=== PATIENT | male | born 1975 | race Caucasian/White ===

== ENCOUNTER 2018-12-31 02:23 | Inpatient (IN) | payer MEDICAID, OTHER ==
[~2018-12-31] VITALS: Ht 180.3 cm; Wt 63.0 kg
[~2018-12-31 02:23] MED LIST: CIPR500T4 PO; HYDR-3980 PO; METR-122 PO; ONDA8TAB14 PO
[2018-12-31] MEDS ORDERED: HYDROmorphONE 1 MG/ML SYG IV STA ×2 (03:39→06:32)
[2018-12-31] MEDS ORDERED: SOD CHLORIDE 0.9% 1,000 ML IV STA (03:39)
[2018-12-31] MEDS ORDERED: ONDANSETRON 4 MG INJ IV STA ×2 (03:39→06:32)
--- NOTE | 2018-12-31 05:43 | ERD ---
ER Documentation Chief Complaint Chief Complaint abd pain with n/v x2hrs ago; denies drinking HPI This a 43-year-old male who complains of diffuse abdominal pain with nausea vomiting onset 2 hours prior to arrival. Bilious and nonbloody. He has no diarrhea. He says the pain is diffuse and crampy no back pain. No hematuria or dysuria. Says the pain is all over his abdominal region. No prior history of the same symptoms in the past pain is crampy and sharp. He does complain of suprapubic pain with urination ROS All systems reviewed and are negative except as per history of present illness. Medications Home Meds Active Scripts Ciprofloxacin Hcl* (Ciprofloxacin Hcl*) 500 Mg Tablet, 500 MG PO BID for 7 Days, TAB Prov:BRITTANYOSROSSSTOLOS A. DO 12/31/18 Hydrocodone/Acetaminophen ([place] 10-325 Tablet) 1 Each Tablet, 1 TAB PO Q6H PRN for PAIN, #12 TAB Prov:ROSS SIMSSTEVANSS A. DO 12/31/18 Ondansetron (Ondansetron Odt) 8 Mg Tab.rapdis, 8 MG PO Q6H PRN for NAUSEA AND/OR VOMITING, #10 TAB Prov:LEKKOS,APOSTOLOS A. DO 12/31/18 Allergies Allergies: Coded Allergies: No Known Allergy (Unverified , 12/31/18) PMhx/Soc Medical and Surgical Hx: pt denies Medical Hx, pt denies Surgical Hx History of Surgery: No Anesthesia Reaction: No Hx Neurological Disorder: No Hx Respiratory Disorders: No Hx Cardiac Disorders: No Hx Psychiatric Problems: No Hx Miscellaneous Medical Probl: No Hx Alcohol Use: No Hx Substance Use: No Hx Tobacco Use: No Smoking Status: Never smoker FmHx Family History: No coronary disease Physical Exam Vitals Vital Signs Date Temp Pulse Resp B/P (MAP) Pulse Ox O2 O2 Flow FiO2 Time Delivery Rate 12/31/18 98.3 60 20 159/90 99 Room Air 05:03 (113) 12/31/18 66 20 146/110 100 Room Air 03:15 (122) 12/31/18 96.7 58 19 157/83 100 02:26 (107) Physical Exam Const: Well-developed, well-nourished Head: Atraumatic, normocephalic Eyes: Normal Conjunctiva, PERRLA, EOMI, normal sclera, no nystagmus ENT: Normal External Ears, Nose and Mouth, moist mucus membranes. Neck: Full range of motion. No meningismus, no lymphadenopathy. Resp: Clear to auscultation bilaterally, no wheezing, rhonchi, rales Cardio: Regular rate and rhythm, no murmurs, S1 S2 present Abd: Soft, diffuse abdominal tenderness moderate non distended. Normal bowel sounds, no guarding or rebound, no pulsitile abdominal masses or bruits Skin: No petechiae or rashes, no ecchymosis , no maculopapular rash Back: No midline or flank tenderness Ext: No cyanosis, or edema, FROM x 4, normal inspection, neurovascularly intact x 4 Neur: Awake and alert, STR 5/5 x 4, sensation intact x 4, no focal findings, cerebellum intact Psych: Normal Mood and Affect Const: No acute distress Head: Atraumatic Eyes: Normal Conjunctiva ENT: Normal External Ears, Nose and Mouth. Neck: Full range of motion. No meningismus. Resp: Clear to auscultation bilaterally Cardio: Regular rate and rhythm, no murmurs Abd: Soft, non tender, non distended. Normal bowel sounds Skin: No petechiae or rashes Back: No midline or flank tenderness Ext: No cyanosis, or edema Neur: Awake and alert Psych: Normal Mood and Affect Result Diagram: 12/31/18 0309 12/31/18 0309 Results 24 hrs Laboratory Tests Test 12/31/18 03:09 12/31/18 04:04 White Blood Count 14.9 10^3/ul Red Blood Count 4.55 10^6/ul Hemoglobin 14.3 g/dl Hematocrit 43.3 % Mean Corpuscular Volume 95.2 fl Mean Corpuscular Hemoglobin 31.4 pg Mean Corpuscular Hemoglobin Concent 33.0 g/dl Red Cell Distribution Width 12.5 % Platelet Count 347 10^3/UL Mean Platelet Volume 9.6 fl Immature Granulocytes % 0.500 % Neutrophils % 90.0 % Lymphocytes % 4.5 % Monocytes % 4.6 % Eosinophils % 0.1 % Basophils % 0.3 % Nucleated Red Blood Cells % 0.0 /100WBC Immature Granulocytes # 0.070 10^3/ul Neutrophils # 13.4 10^3/ul Lymphocytes # 0.7 10^3/ul Monocytes # 0.7 10^3/ul Eosinophils # 0.0 10^3/ul Basophils # 0.0 10^3/ul Nucleated Red Blood Cells # 0.0 10^3/ul Sodium Level 140 mmol/L Potassium Level 4.1 mmol/L Chloride Level 102 mmol/L Carbon Dioxide Level 31 mmol/L Anion Gap 7 Blood Urea Nitrogen 7 mg/dl Creatinine 0.79 mg/dl Est Glomerular Filtrat Rate mL/min > 60 mL/min Glucose Level 142 mg/dl Calcium Level 9.4 mg/dl Total Bilirubin 0.6 mg/dl Direct Bilirubin 0.00 mg/dl Indirect Bilirubin 0.6 mg/dl Aspartate Amino Transf (AST/SGOT) 28 IU/L Alanine Aminotransferase (ALT/SGPT) 27 IU/L Alkaline Phosphatase 100 IU/L Total Protein Pending Albumin 4.3 g/dl Globulin Pending Albumin/Globulin Ratio 1.22 Lipase 33 U/L Urine Color YELLOW Urine Clarity CLOUDY Urine pH 8.0 Urine Specific [place] 1.015 Urine Ketones 1+ mg/dL Urine Nitrite NEGATIVE mg/dL Urine Bilirubin NEGATIVE mg/dL Urine Urobilinogen NEGATIVE mg/dL Urine Leukocyte Esterase TRACE Corry/ul Urine Microscopic RBC 4 /HPF Urine Microscopic WBC 34 /HPF Urine Amorphous Crystals FEW /HPF Urine Hemoglobin NEGATIVE mg/dL Urine Glucose NEGATIVE mg/dL Urine Total Protein NEGATIVE mg/dl Current Medications Medications Dose Sig/Semaj Start Time Status Last (Trade) Ordered Route PRN Stop Time Admin Dose Reason Admin Sodium 1,000 ml @ Q1H STAT 12/31/18 DC 12/31/18 Chloride 1,000 mls/hr IV 03:39 12/31/18 04:03 04:38 1 mg ONCE STAT 12/31/18 DC 12/31/18 Hydromorphone IV 03:39 12/31/18 04:04 HCl 03:41 (Dilaudid) Ondansetron 4 mg ONCE STAT 12/31/18 DC 12/31/18 HCl (Zofran IV 03:39 12/31/18 04:04 Inj) 03:41 Procedures/MDM . CT of the abdomen and pelvis was done and the radiologist called me telling me that the patient's appendix is at 1.6 cm in diameter but there is no infla mmation. There is a mucocele/appendicocele and there is also a base of the cecum mass that is suspicious for a neoplasm. There is also a 6 mm liver mass that looks like a metastasis. 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 We will admit to panel and consult general surgery dr sotelo Departure Diagnosis: Primary Impression: Cecum mass Additional Impressions: Abdominal pain Abdominal location: generalized Qualified Codes: R10.84 - Generalized abdominal pain Vomiting Vomiting type: unspecified Vomiting Intractability: unspecified Nausea presence: unspecified Qualified Codes: R11.10 - Vomiting, unspecified Liver lesion Condition: Stable BRE SIMS DO Dec 31, 2018 05:43
[2018-12-31] MEDS ORDERED: IOHEXOL 300MG/ML 150 ML BTL ONE (06:18)
[2018-12-31] MEDS ORDERED: SOD CHLORIDE 0.9% 100 ML ONE (06:18)
[2018-12-31] MEDS ORDERED: SOD CHLORIDE 0.9% 1,000 ML IV SCH (06:26)
[2018-12-31] MEDS ORDERED: ACETAMINOPHEN 325 MG TAB PO PRN (06:30)
[2018-12-31] MEDS ORDERED: ONDANSETRON 4 MG INJ IV PRN (06:30)
[2018-12-31 08:00] VITALS: BP 133/83; PULSE 80; RESP 17
[2018-12-31] MEDS ORDERED: CEFTRIAXONE 1 GM/50 ML (PMX) 50 ML IVPB SCH (08:00)
[2018-12-31] MEDS ORDERED: NACL 0.9% 3 ML SYG IV SCH (08:00)
[2018-12-31 08:01] VITALS: Ht 180.3 cm; Wt 63.0 kg
[2018-12-31] MEDS: DEXTROSE 5%-0.45% NACL 1,000 ML IV SCH ×3 (08:13→23:58)
--- NOTE | 2018-12-31 08:49 | HP ---
Date/Time of Note Date/Time of Note DATE: 12/31/18 TIME: 08:42 Assessment/Plan VTE Prophylaxis SCD applied (from Nsg): Yes Pharmacological prophylaxis: NA/contraindicated Pharm contraindication: other (Awaiting surgical eval) Lines/Catheters IV Catheter Type (from Nrsg): Saline Lock Assessment/Plan Assessment/Plan 1. Presumed acute appendicitis -Keep n.p.o. with IV fluid -IV antibiotic -Awaiting surgical evaluation, Derik Henry 2. Colon thickening with ill-defined liver lesion: Worrisome for metastatic process -GI for colonoscopy -Check tumor markers -Oncology consult in a.m. 3. UTI -IV antibiotic -IV fluid -follow-up culture results 4. Leukocytosis: Likely secondary to #1 #3 5. History of a spontaneous right-sided pneumothorax requiring chest tube insertion: -No acute issue Result Diagram: 12/31/18 0309 12/31/18 0309 Results 24hrs Laboratory Tests Test 12/31/18 03:09 12/31/18 04:04 White Blood Count 14.9 H Red Blood Count 4.55 L Hemoglobin 14.3 Hematocrit 43.3 Mean Corpuscular Volume 95.2 Mean Corpuscular Hemoglobin 31.4 Mean Corpuscular Hemoglobin Concent 33.0 Red Cell Distribution Width 12.5 Platelet Count 347 Mean Platelet Volume 9.6 Immature Granulocytes % 0.500 H Neutrophils % 90.0 H Lymphocytes % 4.5 L Monocytes % 4.6 Eosinophils % 0.1 Basophils % 0.3 Nucleated Red Blood Cells % 0.0 Immature Granulocytes # 0.070 H Neutrophils # 13.4 H Lymphocytes # 0.7 L Monocytes # 0.7 Eosinophils # 0.0 Basophils # 0.0 Nucleated Red Blood Cells # 0.0 Sodium Level 140 Potassium Level 4.1 Chloride Level 102 Carbon Dioxide Level 31 Anion Gap 7 Blood Urea Nitrogen 7 Creatinine 0.79 Est Glomerular Filtrat Rate mL/min > 60 Glucose Level 142 Calcium Level 9.4 Total Bilirubin 0.6 Direct Bilirubin 0.00 Indirect Bilirubin 0.6 Aspartate Amino Transf (AST/SGOT) 28 Alanine Aminotransferase (ALT/SGPT) 27 Alkaline Phosphatase 100 Total Protein 7.7 Albumin 4.3 Globulin 3.40 H Albumin/Globulin Ratio 1.22 Lipase 33 Urine Color YELLOW Urine Clarity CLOUDY A Urine pH 8.0 Urine Specific [place] 1.015 Urine Ketones 1+ H Urine Nitrite NEGATIVE Urine Bilirubin NEGATIVE Urine Urobilinogen NEGATIVE Urine Leukocyte Esterase TRACE A Urine Microscopic RBC 4 Urine Microscopic WBC 34 H Urine Amorphous Crystals FEW A Urine Hemoglobin NEGATIVE Urine Glucose NEGATIVE Urine Total Protein NEGATIVE HPI/ROS Admit Date/Time Admit Date/Time Dec 31, 2018 at 06:26 Hx of Present Illness Patient is a 43-year-old male with history of spontaneous pneumothorax requiring chest tube insertion who presented to ER complaining of abdominal pain. Pain started yesterday. It is diffuse, associated with one episode of vomiting with emesis described as dark and nonbloody. Patient also reported generalized wea kness. Denied similar symptoms in the past. Denies constipation, diarrhea. Last bowel movement was yesterday, which he described as normal, not dark and is nonbloody. He is thinly build and stated that he has always been like this. Denied weight loss. When he was younger, used to smoke marijuana, otherwise denies illicit drug use, alcohol abuse. He does not smoke cigarettes however. When presented to the ER, initial temperature documented was 96.7. WBC 15,000, UA consistent with UTI. CT abdomen/pelvis shows the followin. Dilated fluid filled appendix measuring up to 1.6 cm diameter, appearance consistent with appendicitis with mucocele. 2. Mildly thickened heterogeneous appearance of the bowel wall at the cecal base raises concern for underlying neoplasm. 3. Ill-defined 6.2 cm low attenuation lesion within the right lobe of the liver, differential includes metastatic disease, primary neoplasm and infection. Consider further evaluation with MRI. PMH/Family/Social Past Medical History Medical History: other (See HPI) Medications Current Medications Sodium Chloride 1,000 ml @ 80 mls/hr [id number] IV Last administered on 12/31/18at 07:29; Admin Dose 80 MLS/HR; Start 12/31/18 at 06:26; Stop 12/31/18 at 18:55 Ondansetron HCl (Zofran Inj) 4 mg BRIDGE ORDER PRN IV NAUSEA/VOMITING; Start at 06:30; Stop 01/01/19 at 06:29 Acetaminophen (Tylenol Tab) 650 mg ER BRIDGE PRN PO .MILD PAIN 1-3 OR TEMP; Start 12/31/18 at 06:30; Stop 01/01/19 at 06:29 Dextrose/Sodium Chloride 1,000 ml @ 120 mls/hr Q8H20M IV Last administered on 12/31/18at 08:13; Admin Dose 120 MLS/HR; Start 12/31/18 at 07:46 IV Flush (NS 3 ml) 3 ml PER PROTOCOL IV ; Start 12/31/18 at 08:00 Ondansetron HCl (Zofran Inj) 4 mg Q6H PRN IV NAUSEA/VOMITING; Start 12/31/18 at 08:00 Morphine Sulfate (morphine) 2 mg Q4H PRN IV .SEVERE PAIN 7-10; Start 12/31/18 at 08:00 Pantoprazole (Protonix Iv) 40 mg DAILY@06 IV ; Start 01/01/19 at 06:00 Piperacillin Sod/ Tazobactam Sod 100 ml @ 200 mls/hr Q6 IVPB ; Start 12/31/18 at 12:00; Status UNV Coded Allergies: No Known Allergy (Unverified , 12/31/18) Past Surgical History Past Surgical Hx: other (See HPI) Family History Significant Family History: no pertinent family hx Social History Alcohol Use: none Smoking Status: Current every day smoker Drug Use: none Exam/Review of Systems Vital Signs Vitals Vital Signs Date Temp Pulse Resp B/P (MAP) Pulse Ox O2 O2 Flow FiO2 Time Delivery Rate 12/31/18 98.2 80 17 133/83 99 Room Air 08:00 (100) Exam Constitutional: other (Appears somehow weak. Sleepy, but arousable and answering questions appropriately) Head: normocephalic, atraumatic Eyes: EOMI, PERRL Respiratory: clear to auscultation, normal air movement Cardiovascular: regular rate and rhythm Gastrointestinal: soft, other (Minimal tenderness to deep palpation diffusely. No guarding. No rebound tenderness. No rigidity) Extremities: normal pulses CANDACE RAMOS MD Dec 31, 2018 08:49
[2018-12-31] MEDS: PIPER-TAZO 3.375 GM IV (PMX) 100 ML IVPB SCH ×4 (10:56→23:59)
[2018-12-31] MEDS: morphine 2 MG INJ IV PRN ×2 (11:53→18:44)
--- NOTE | 2018-12-31 14:17 | PN ---
Date/Time of Note Date/Time of Note DATE: 12/31/18 TIME: 14:13 Assessment/Plan VTE Prophylaxis Risk score (from Ns)>0 risk: 1 SCD applied (from Nsg): Yes Pharmacological prophylaxis: NA/contraindicated Pharm contraindication: low risk/ambulating Lines/Catheters IV C[facility] Type [facility]from [facility]): Peripheral IV Assessment/Plan Assessment/Plan 43 yo man with history of spontaneous pneumothorax presents with acute appendicitis. 1. Presumed acute appendicitis -Keep n.p.o. with IV fluid -IV antibiotic -Awaiting surgical evaluation, Derik Henry - The patient reports good cardiovascular fitness, hikes regularly, can easily achieve >4 METS without chest pain or dyspnea. He is medically optimized for surgery with no further medical or cardiac workup needed. 2. Colon thickening with ill-defined liver lesion: Worrisome for metastatic process -Will need to check surgical pathology. - If possible, a liver biopsy during appendectomy would be very helpful. 3. UTI -IV antibiotic -IV fluid -follow-up culture results 4. History of a spontaneous right-sided pneumothorax requiring chest tube insertion: -No acute issue Result Diagram: 12/31/18 0309 12/31/18 0309 Subjective 24 Hr Interval Summary Free Text/Dictation No acute overnight events. Patient is still in abdominal pain. Exam/Review of Systems Exam Vitals Vital Signs Date Temp Pulse Resp B/P (MAP) Pulse Ox O2 O2 Flow FiO2 Time Delivery Rate 12/31/18 98.2 80 17 133/83 99 Room Air 08:00 (100) Exam Gen: Well appearing, man supine in gurney in no acute distress. Eyes: PERRL, mild icterus HEENT: Moist mucous membranes, clear oropharynx Neck: Supple, no lymphadenopathy, no JVD Card: Regular rate and rhythm, no murmurs Pulm: Clear to auscultation bilaterally. Abd: Soft, nondistended, not tympanic. Hypoactive bowel sounds. Ext: No cyanosis/clubbing/edema. Skin: No jaundice. Warm, dry, well perfused. Results Results 24hrs Laboratory Tests Test 12/31/18 03:09 12/31/18 04:04 12/31/18 08:27 White Blood Count 14.9 H Red Blood Count 4.55 L Hemoglobin 14.3 Hematocrit 43.3 Mean Corpuscular Volume 95.2 Mean Corpuscular Hemoglobin 31.4 Mean Corpuscular Hemoglobin Concent 33.0 Red Cell Distribution Width 12.5 Platelet Count 347 Mean Platelet Volume 9.6 Immature Granulocytes % 0.500 H Neutrophils % 90.0 H Lymphocytes % 4.5 L Monocytes % 4.6 Eosinophils % 0.1 Basophils % 0.3 Nucleated Red Blood Cells % 0.0 Immature Granulocytes # 0.070 H Neutrophils # 13.4 H Lymphocytes # 0.7 L Monocytes # 0.7 Eosinophils # 0.0 Basophils # 0.0 Nucleated Red Blood Cells # 0.0 Sodium Level 140 Potassium Level 4.1 Chloride Level 102 Carbon Dioxide Level 31 Anion Gap 7 Blood Urea Nitrogen 7 Creatinine 0.79 Est Glomerular Filtrat Rate mL/min > 60 Glucose Level 142 Calcium Level 9.4 Total Bilirubin 0.6 Direct Bilirubin 0.00 Indirect Bilirubin 0.6 Aspartate Amino Transf (AST/SGOT) 28 Alanine Aminotransferase (ALT/SGPT) 27 Alkaline Phosphatase 100 Total Protein 7.7 Albumin 4.3 Globulin 3.40 H Albumin/Globulin Ratio 1.22 Lipase 33 Urine Color YELLOW Urine Clarity CLOUDY A Urine pH 8.0 Urine Specific [place] 1.015 Urine Ketones 1+ H Urine Nitrite NEGATIVE Urine Bilirubin NEGATIVE Urine Urobilinogen NEGATIVE Urine Leukocyte Esterase TRACE A Urine Microscopic RBC 4 Urine Microscopic WBC 34 H Urine Amorphous Crystals FEW A Urine Hemoglobin NEGATIVE Urine Glucose NEGATIVE Urine Total Protein NEGATIVE Carcinoembryonic Antigen 18.4 H CA 19-9 Antigen 325.0 H Medications Medication Current Medications Sodium Chloride 1,000 ml @ 80 mls/hr [id number] IV Last administered on 12/31/18at 07:29; Admin Dose 80 MLS/HR; Start 12/31/18 at 06:26; Stop 12/31/18 at 18:55 Dextrose/Sodium Chloride 1,000 ml @ 120 mls/hr Q8H20M IV Last administered on 12/31/18at 08:13; Admin Dose 120 MLS/HR; Start 12/31/18 at 07:46 IV Flush (NS 3 ml) 3 ml PER PROTOCOL IV ; Start 12/31/18 at 08:00 Ondansetron HCl (Zofran Inj) 4 mg Q6H PRN IV NAUSEA/VOMITING; Start 12/31/18 at 08:00 Morphine Sulfate (morphine) 2 mg Q4H PRN IV .SEVERE PAIN 7-10 Last administered on 12/31/18at 11:53; Admin Dose 2 MG; Start 12/31/18 at 08:00 Pantoprazole (Protonix Iv) 40 mg DAILY@06 IV ; Start 01/01/19 at 06:00 Piperacillin Sod/ Tazobactam Sod 100 ml @ 200 mls/hr Q6 IVPB Last administered on 12/31/18at 10:56; Admin Dose 200 MLS/HR; Start 12/31/18 at 09:00 ALLISON FIGUEROA MD Dec 31, 2018 14:17
[2018-12-31 15:02] VITALS: BP 125/68; PULSE 63; RESP 18
--- NOTE | 2018-12-31 16:52 | CONS ---
Assessment/Plan Assessment/Plan Assessment/Plan (Daily) Patient presents with a clinical picture of the cecal mass with the liver lesion and dilated appendix. 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 His dilated appendix probably secondary to occlusion of the lumen by the cecal mass. Currently patient is stable with minimal pain. The best course of treatment in this way will be full colonoscopy with a biopsy, MRI of the liver, blood tests for the tumor markers, hepatobiliary consult for possible hepatectomy. Patient cannot have appendectomy at that time unless is absolutely mandatory by clinical picture. If the patient will need urgent surgery he will need right hemicolectomy at least. Consultation Date/Type/Reason Admit Date/Time Dec 31, 2018 at 06:26 Date of Consultation: Dec 31, 2018 Type of Consult Surgical Reason for Consultation Cecal mass with liver lesion. Date/Time of Note DATE: 12/31/18 TIME: 16:49 Hx of Present Illness Patient is 43-year-old male who is been in usual state of his health when yesterday he developed nausea abdominal discomfort and fatigue and was referred to emergency room. In the emergency room he was found to have dilated appendix cecal mass and possible liver lesion. Constitutional: no complaints, improved Eyes: no complaints ENT: no complaints Respiratory: no complaints Cardiovascular: no complaints Gastrointestinal: no complaints Genitourinary: no complaints Musculoskeletal: no complaints Skin: no complaints Neurologic: no complaints Endocrine: no complaints Lymphatic: no complaints Psychological: no complaints, nl mood/affect Immunologic: no complaints Past Medical History Medical History: other (See HPI) Home Meds Active Scripts Ciprofloxacin Hcl* (Ciprofloxacin Hcl*) 500 Mg Tablet, 500 MG PO BID for 7 Days, TAB Prov:BRE SIMS DO 12/31/18 Hydrocodone/Acetaminophen ([place] 10-325 Tablet) 1 Each Tablet, 1 TAB PO Q6H PRN for PAIN, #12 TAB Prov:BRE SIMS DO 12/31/18 Ondansetron (Ondansetron Odt) 8 Mg Tab.rapdis, 8 MG PO Q6H PRN for NAUSEA AND/OR VOMITING, #10 TAB Prov:BRE SIMS DO 12/31/18 Medications Current Medications Sodium Chloride 1,000 ml @ 80 mls/hr [id number] IV Last administered on 12/31/18at 07:29; Admin Dose 80 MLS/HR; Start 12/31/18 at 06:26; Stop 12/31/18 at 18:55 Dextrose/Sodium Chloride 1,000 ml @ 120 mls/hr Q8H20M IV Last administered on 12/31/18at 08:13; Admin Dose 120 MLS/HR; Start 12/31/18 at 07:46 IV Flush (NS 3 ml) 3 ml PER PROTOCOL IV ; Start 12/31/18 at 08:00 Ondansetron HCl (Zofran Inj) 4 mg Q6H PRN IV NAUSEA/VOMITING; Start 12/31/18 at 08:00 Morphine Sulfate (morphine) 2 mg Q4H PRN IV .SEVERE PAIN 7-10 Last administered on 12/31/18at 11:53; Admin Dose 2 MG; Start 12/31/18 at 08:00 Pantoprazole (Protonix Iv) 40 mg DAILY@06 IV ; Start 01/01/19 at 06:00 Piperacillin Sod/ Tazobactam Sod 100 ml @ 200 mls/hr Q6 IVPB Last administered on 12/31/18at 10:56; Admin Dose 200 MLS/HR; Start 12/31/18 at 09:00 Allergies: Coded Allergies: No Known Allergy (Unverified , 12/31/18) Past Surgical History Past Surgical Hx: other (See HPI) Social History Alcohol Use: none Smoking Status: Current every day smoker Drug Use: none Exam/Review of Systems Exam Vitals Vital Signs Date Temp Pulse Resp B/P (MAP) Pulse Ox O2 O2 Flow FiO2 Time Delivery Rate 12/31/18 98.0 63 18 125/68 98 Room Air 15:02 (87) Constitutional: alert, oriented, well developed Psych: no complaints, nl mood/affect Head: normocephalic, atraumatic Eyes: nl conjunctiva, EOMI, nl lids, nl sclera, PERRL ENMT: nl external ears & nose, nl lips & teeth, nl nasal mucosa & septum Neck: supple, non-tender Respiratory: clear to auscultation, normal air movement Cardiovascular: regular rate and rhythm, nl pulses Gastrointestinal: soft, hepatomegaly, other (Very mild tenderness in the right lower quadrant without rebound.) Musculoskeletal: nl extremities to inspection, nl gait and stance Extremities: normal pulses Neurological: CAUSE ANALYST II-XII intact, nl mental status, nl speech, nl strength Skin: nl turgor; No rash or lesions Lymph: nl lymph nodes Results Result Diagram: 12/31/18 0309 12/31/18 0309 Results 24hrs Laboratory Tests Test 12/31/18 03:09 12/31/18 04:04 12/31/18 08:27 White Blood Count 14.9 H Red Blood Count 4.55 L Hemoglobin 14.3 Hematocrit 43.3 Mean Corpuscular Volume 95.2 Mean Corpuscular Hemoglobin 31.4 Mean Corpuscular Hemoglobin Concent 33.0 Red Cell Distribution Width 12.5 Platelet Count 347 Mean Platelet Volume 9.6 Immature Granulocytes % 0.500 H Neutrophils % 90.0 H Lymphocytes % 4.5 L Monocytes % 4.6 Eosinophils % 0.1 Basophils % 0.3 Nucleated Red Blood Cells % 0.0 Immature Granulocytes # 0.070 H Neutrophils # 13.4 H Lymphocytes # 0.7 L Monocytes # 0.7 Eosinophils # 0.0 Basophils # 0.0 Nucleated Red Blood Cells # 0.0 Sodium Level 140 Potassium Level 4.1 Chloride Level 102 Carbon Dioxide Level 31 Anion Gap 7 Blood Urea Nitrogen 7 Creatinine 0.79 Est Glomerular Filtrat Rate mL/min > 60 Glucose Level 142 Calcium Level 9.4 Total Bilirubin 0.6 Direct Bilirubin 0.00 Indirect Bilirubin 0.6 Aspartate Amino Transf (AST/SGOT) 28 Alanine Aminotransferase (ALT/SGPT) 27 Alkaline Phosphatase 100 Total Protein 7.7 Albumin 4.3 Globulin 3.40 H Albumin/Globulin Ratio 1.22 Lipase 33 Urine Color YELLOW Urine Clarity CLOUDY A Urine pH 8.0 Urine Specific [place] 1.015 Urine Ketones 1+ H Urine Nitrite NEGATIVE Urine Bilirubin NEGATIVE Urine Urobilinogen NEGATIVE Urine Leukocyte Esterase TRACE A Urine Microscopic RBC 4 Urine Microscopic WBC 34 H Urine Amorphous Crystals FEW A Urine Hemoglobin NEGATIVE Urine Glucose NEGATIVE Urine Total Protein NEGATIVE Carcinoembryonic Antigen 18.4 H CA 19-9 Antigen 325.0 H Medications Medication Current Medications Sodium Chloride 1,000 ml @ 80 mls/hr [id number] IV Last administered on 12/31/18at 07:29; Admin Dose 80 MLS/HR; Start 12/31/18 at 06:26; Stop 12/31/18 at 18:55 Dextrose/Sodium Chloride 1,000 ml @ 120 mls/hr Q8H20M IV Last administered on 12/31/18at 08:13; Admin Dose 120 MLS/HR; Start 12/31/18 at 07:46 IV Flush (NS 3 ml) 3 ml PER PROTOCOL IV ; Start 12/31/18 at 08:00 Ondansetron HCl (Zofran Inj) 4 mg Q6H PRN IV NAUSEA/VOMITING; Start 12/31/18 at 08:00 Morphine Sulfate (morphine) 2 mg Q4H PRN IV .SEVERE PAIN 7-10 Last administered on 12/31/18at 11:53; Admin Dose 2 MG; Start 12/31/18 at 08:00 Pantoprazole (Protonix Iv) 40 mg DAILY@06 IV ; Start 01/01/19 at 06:00 Piperacillin Sod/ Tazobactam Sod 100 ml @ 200 mls/hr Q6 IVPB Last administered on 12/31/18at 10:56; Admin Dose 200 MLS/HR; Start 12/31/18 at 09:00 FORTINO SHIPLEY MD Dec 31, 2018 16:52
[2018-12-31] MEDS ORDERED: MAGNESIUM CITRATE 300 ML BTL PO ONE (17:30)
--- NOTE | 2018-12-31 18:01 | CONS ---
Assessment/Plan Assessment/Plan Hospital Course (Demo Recall) Summary Assessment and Plan: Assessment: Dilated appendix with underlying cecal wall thickening concerning for neoplasm -CEA-- 18.4 -CA 19-9-- 325 Hepatic lesion Family history of colon ca i.e. father Current everyday smoker-1/2 pack per day Plan: Abdominal MRI with contrast to further characterize liver lesion Clear liquid diet today, n.p.o. after 01/01/2019 at 0 800 Colonoscopy tomorrow Endoscopy - risks/benefits/alternatives/indications of procedure and sedation/anesthesia discussed with patient who states understanding and gives informed consent to proceed. Patient seen in collaboration with Dr. Aguliar CC: ALVIN AGUILAR MD ; Consultation Date/Type/Reason Admit Date/Time Dec 31, 2018 at 06:26 Date of Consultation: Dec 31, 2018 Type of Consult Gastroenterology Reason for Consultation Abnormal imaging thickening of bowel wall cecal base concerns for underlying neoplasm Date/Time of Note DATE: 12/31/18 TIME: 17:47 Hx of Present Illness This is a 43 year old male with PMH thorax in his 20s other chicas relatively heal thy who presented to the ED with c/o nausea and lower abdominal pain. Imaging was completed CT A/P revealed dilated appendix, appearance consistent with appendicitis with mucocele. with mildly thickened bowel wall at the cecal base with concerns for underlying neoplasm. An ill-defined 6.2 cm lesion was noted with in the right lobe of the liver with concerns for metastatic disease. Additionally, tumor markers were obtained CEA- 18.4 and CA 199 325. Patient was evaluated by surgery who recommends full colonoscopy with biopsy and MRI of the liver. At time evaluation patient continues to complain of lower abdominal pain he denies hematochezia, melena. He denies alcohol use or drug use, he does admit to smoking 1/2 of cigarettes per day for 20+ years, and does have a family history fo colon cancer i.e. father. Discussed plan for colonoscopy tomorrow I reviewed risk/benefits of sedation and procedure including risk for perforation. Patient verbalized understanding and is agreeable to colonoscopy. Review of Systems: A 12 system, review was conducted and is negative except as noted in the HPI or here. Past Medical History Medical History: other (See HPI) Home Meds Active Scripts Ciprofloxacin Hcl* (Ciprofloxacin Hcl*) 500 Mg Tablet, 500 MG PO BID for 7 Days, TAB Prov:BRE SIMS DO 12/31/18 Hydrocodone/Acetaminophen ([place] 10-325 Tablet) 1 Each Tablet, 1 TAB PO Q6H PRN for PAIN, #12 TAB Prov:BRE SIMS DO 12/31/18 Ondansetron (Ondansetron Odt) 8 Mg Tab.rapdis, 8 MG PO Q6H PRN for NAUSEA AND/OR VOMITING, #10 TAB Prov:BRE SIMS DO 12/31/18 Medications Current Medications Sodium Chloride 1,000 ml @ 80 mls/hr [id number] IV Last administered on 12/31/18at 07:29; Admin Dose 80 MLS/HR; Start 12/31/18 at 06:26; Stop 12/31/18 at 18:55 Dextrose/Sodium Chloride 1,000 ml @ 120 mls/hr Q8H20M IV Last administered on 12/31/18at 08:13; Admin Dose 120 MLS/HR; Start 12/31/18 at 07:46 IV Flush (NS 3 ml) 3 ml PER PROTOCOL IV ; Start 12/31/18 at 08:00 Ondansetron HCl (Zofran Inj) 4 mg Q6H PRN IV NAUSEA/VOMITING; Start 12/31/18 at 08:00 Morphine Sulfate (morphine) 2 mg Q4H PRN IV .SEVERE PAIN 7-10 Last administered on 12/31/18at 11:53; Admin Dose 2 MG; Start 12/31/18 at 08:00 Pantoprazole (Protonix Iv) 40 mg DAILY@06 IV ; Start 01/01/19 at 06:00 Piperacillin Sod/ Tazobactam Sod 100 ml @ 200 mls/hr Q6 IVPB Last administered on 12/31/18at 17:14; Admin Dose 200 MLS/HR; Start 12/31/18 at 09:00 Allergies: Coded Allergies: No Known Allergy (Unverified , 12/31/18) Past Surgical History Past Surgical Hx: other (See HPI) Social History Alcohol Use: none Smoking Status: Current every day smoker Drug Use: none Exam/Review of Systems Exam Vitals Vital Signs Date Temp Pulse Resp B/P (MAP) Pulse Ox O2 O2 Flow FiO2 Time Delivery Rate 12/31/18 98.0 63 18 125/68 98 Room Air 15:02 (87) Exam PHYSICAL EXAMINATION: GENERAL: Alert & oriented x 3, in no acute distress SKIN: No lesion HEAD: Normocephalic, atraumatic, no tenderness. EYES: Pupils equal reactive to light and accommodation, no discharge. EARS/NOSE AND THROAT: Ears normal, nose normal. NECK: Supple, no masses CHEST: Inspection within normal limits. CARDIOVASCULAR: Heart: Regular rate and rhythm RESPIRATORY: Lungs clear to auscultation GASTROINTESTINAL AND LIVER: Abdomen: Soft, non tenderness, non-distended, no organomegaly, no ascites, no guarding, no rebound tenderness, normoactive bowel sounds. Rectal: Deferred. EXTREMITIES: No cyanosis, clubbing or edema. Results Result Diagram: 12/31/18 0309 12/31/18 0309 Results 24hrs Laboratory Tests Test 12/31/18 03:09 12/31/18 04:04 12/31/18 08:27 White Blood Count 14.9 H Red Blood Count 4.55 L Hemoglobin 14.3 Hematocrit 43.3 Mean Corpuscular Volume 95.2 Mean Corpuscular Hemoglobin 31.4 Mean Corpuscular Hemoglobin Concent 33.0 Red Cell Distribution Width 12.5 Platelet Count 347 Mean Platelet Volume 9.6 Immature Granulocytes % 0.500 H Neutrophils % 90.0 H Lymphocytes % 4.5 L Monocytes % 4.6 Eosinophils % 0.1 Basophils % 0.3 Nucleated Red Blood Cells % 0.0 Immature Granulocytes # 0.070 H Neutrophils # 13.4 H Lymphocytes # 0.7 L Monocytes # 0.7 Eosinophils # 0.0 Basophils # 0.0 Nucleated Red Blood Cells # 0.0 Sodium Level 140 Potassium Level 4.1 Chloride Level 102 Carbon Dioxide Level 31 Anion Gap 7 Blood Urea Nitrogen 7 Creatinine 0.79 Est Glomerular Filtrat Rate mL/min > 60 Glucose Level 142 Calcium Level 9.4 Total Bilirubin 0.6 Direct Bilirubin 0.00 Indirect Bilirubin 0.6 Aspartate Amino Transf (AST/SGOT) 28 Alanine Aminotransferase (ALT/SGPT) 27 Alkaline Phosphatase 100 Total Protein 7.7 Albumin 4.3 Globulin 3.40 H Albumin/Globulin Ratio 1.22 Lipase 33 Urine Color YELLOW Urine Clarity CLOUDY A Urine pH 8.0 Urine Specific Champion 1.015 Urine Ketones 1+ H Urine Nitrite NEGATIVE Urine Bilirubin NEGATIVE Urine Urobilinogen NEGATIVE Urine Leukocyte Esterase TRACE A Urine Microscopic RBC 4 Urine Microscopic WBC 34 H Urine Amorphous Crystals FEW A Urine Hemoglobin NEGATIVE Urine Glucose NEGATIVE Urine Total Protein NEGATIVE Carcinoembryonic Antigen 18.4 H CA 19-9 Antigen 325.0 H Medications Medication Current Medications Sodium Chloride 1,000 ml @ 80 mls/hr [id number] IV Last administered on 12/31/18 07:29; Admin Dose 80 MLS/HR; Start 12/31/18 at 06:26; Stop 12/31/18 at 18:55 Dextrose/Sodium Chloride 1,000 ml @ 120 mls/hr Q8H20M IV Last administered on 12/31/18at 08:13; Admin Dose 120 MLS/HR; Start 12/31/18 at 07:46 IV Flush (NS 3 ml) 3 ml PER PROTOCOL IV ; Start 12/31/18 at 08:00 Ondansetron HCl (Zofran Inj) 4 mg Q6H PRN IV NAUSEA/VOMITING; Start 12/31/18 at 08:00 Morphine Sulfate (morphine) 2 mg Q4H PRN IV .SEVERE PAIN 7-10 Last administered on 12/31/18at 11:53; Admin Dose 2 MG; Start 12/31/18 at 08:00 Pantoprazole (Protonix Iv) 40 mg DAILY@06 IV ; Start 01/01/19 at 06:00 Piperacillin Sod/ Tazobactam Sod 100 ml @ 200 mls/hr Q6 IVPB Last administered on 12/31/18at 17:14; Admin Dose 200 MLS/HR; Start 12/31/18 at 09:00 ESTHER LEONE Dec 31, 2018 17:59
[2018-12-31] MEDS ORDERED: BISACODYL (EC) 5 MG TAB PO ONE (18:30)
[2018-12-31] MEDS ORDERED: POLYETHYLENE GLYCOL 3350 119 GM POWDER PO ONE (18:30)
[2018-12-31 20:09] VITALS: BP 128/75; PULSE 76; RESP 18
[2018-12-31] MEDS ORDERED: POLYETHYLENE GLYCOL 17 GM PACKET PO SCH (22:00)
[2019-01-01 02:18] VITALS: BP 119/73; PULSE 71; RESP 16
[2019-01-01] MEDS ORDERED: POLYETHYLENE GLYCOL 3350 119 GM POWDER PO ONE (06:00)
[2019-01-01] MEDS: morphine 2 MG INJ IV PRN ×2 (06:21→10:23)
[2019-01-01] MEDS: PIPER-TAZO 3.375 GM IV (PMX) 100 ML IVPB SCH ×4 (06:21→23:04)
[2019-01-01] MEDS: PANTOPRAZOLE 40 MG INJ IV SCH (06:21)
[2019-01-01 07:46] VITALS: BP 121/72; PULSE 78; RESP 19
[2019-01-01] MEDS ORDERED: BISACODYL (EC) 5 MG TAB PO ONE ×2 (08:00→16:00)
[2019-01-01] MEDS: DEXTROSE 5%-0.45% NACL 1,000 ML IV SCH ×2 (08:22→15:51)
--- NOTE | 2019-01-01 10:27 | PN ---
Date/Time of Note Date/Time of Note DATE: 01/01/19 TIME: 10:25 Assessment/Plan VTE Prophylaxis Risk score (from Ns)>0 risk: 2 SCD applied (from Ns): Yes Pharmacological prophylaxis: NA/contraindicated Pharm contraindication: low risk/ambulating Lines/Catheters [facility] Peripheral IV Assessment/Plan Assessment/Plan 43 yo man with history of spontaneous pneumothorax presents with acute appendicitis. 1. Cecal thickening with liver mass - Concerning for colon cancer with mets to the liver - Plan for colonoscopy with biopsy to confirm diagnosis - If cancer, will need hemicolectomy and partial liver resection. - Also on IV antibiotics for possible appendicitis. 2. UTI -IV antibiotics -follow-up culture results 3. History of a spontaneous right-sided pneumothorax requiring chest tube insertion: -No acute issue Result Diagram: 01/01/1943701/01/19437 Subjective 24 Hr Interval Summary Free Text/Dictation No acute overnight events. Patient snf through bowel prep. As of this note he hasn't had a bowel movement yet. Abdominal pain adequately controlled. It's gassy pain. Exam/Review of Systems Exam Vitals Vital Signs Date Temp Pulse Resp B/P (MAP) Pulse Ox O2 O2 Flow FiO2 Time Delivery Rate 01/01/19 97.2 78 19 121/72 98 07:46 (88) 12/31/18 Room Air 15:02 Intake and Output 12/31/18 12/31/18 01/01/19 1515:00 23:00 07:00 IntakeIntake Total 100 ml 1420 ml 1920 ml BalanceBalance 100 ml 1420 ml 1920 ml Exam Gen: Well appearing, man supine in rney in no acute distress. Eyes: PERRL, mild icterus HEENT: Moist mucous membranes, clear oropharynx Neck: Supple, no lymphadenopathy, no JVD Card: Regular rate and rhythm, no murmurs Pulm: Clear to auscultation bilaterally. Abd: Soft, guarding throughout, nondistended, not tympanic. Ext: No cyanosis/clubbing/edema. Skin: No jaundice. Warm, dry, well perfused. Results Results 24hrs Laboratory Tests Test 01/01/19 04:38 White Blood Count 17.5 H Red Blood Count 4.43 L Hemoglobin 13.8 L Hematocrit 41.9 L Mean Corpuscular Volume 94.6 Mean Corpuscular Hemoglobin 31.2 Mean Corpuscular Hemoglobin Concent 32.9 Red Cell Distribution Width 12.7 Platelet Count 306 Mean Platelet Volume 9.4 Immature Granulocytes % 0.500 H Neutrophils % 85.8 H Lymphocytes % 6.2 L Monocytes % 6.8 Eosinophils % 0.5 Basophils % 0.2 Nucleated Red Blood Cells % 0.0 Immature Granulocytes # 0.090 H Neutrophils # 15.0 H Lymphocytes # 1.1 Monocytes # 1.2 H Eosinophils # 0.1 Basophils # 0.0 Nucleated Red Blood Cells # 0.0 Sodium Level 138 Potassium Level 4.0 Chloride Level 100 Carbon Dioxide Level 31 Anion Gap 7 Blood Urea Nitrogen 10 Creatinine 0.81 Est Glomerular Filtrat Rate mL/min > 60 Glucose Level 121 Hemoglobin A1c 5.3 Calcium Level 8.8 Phosphorus Level 3.2 Magnesium Level 1.9 Total Bilirubin 0.8 Direct Bilirubin 0.00 Indirect Bilirubin 0.8 Aspartate Amino Transf (AST/SGOT) 20 Alanine Aminotransferase (ALT/SGPT) 22 Alkaline Phosphatase 84 Total Protein 6.1 # Albumin 3.5 Globulin 2.60 Albumin/Globulin Ratio 1.34 Triglycerides Level 67 Cholesterol Level 163 LDL Cholesterol, Calculated 99 HDL Cholesterol 51 Cholesterol/HDL Ratio 3.1 Thyroid Stimulating Hormone (TSH) 0.206 L Medications Medication Current Medications Dextrose/Sodium Chloride 1,000 ml @ 120 mls/hr Q8H20M IV Last administered on 01/01/19at 08:22; Admin Dose 120 MLS/HR; Start 12/31/18 at 07:46 IV Flush (NS 3 ml) 3 ml PER PROTOCOL IV ; Start 12/31/18 at 08:00 Ondansetron HCl (Zofran Inj) 4 mg Q6H PRN IV NAUSEA/VOMITING; Start 12/31/18 at 08:00 Morphine Sulfate (morphine) 2 mg Q4H PRN IV .SEVERE PAIN 7-10 Last administered on 01/01/19at 10:23; Admin Dose 2 MG; Start 12/31/18 at 08:00 Pantoprazole (Protonix Iv) 40 mg DAILY@06 IV Last administered on 01/01/19at 06:21; Admin Dose 40 MG; Start 01/01/19 at 06:00 Piperacillin Sod/ Tazobactam Sod 100 ml @ 200 mls/hr Q6 IVPB Last administered on 01/01/19at 06:21; Admin Dose 200 MLS/HR; Start 12/31/18 at 09:00 ALLISON FIGUEROA MD Jan 01, 2019 10:27
--- NOTE | 2019-01-01 13:45 | PN ---
Date/Time of Note Date/Time of Note DATE: 01/01/19 TIME: 13:30 Assessment/Plan VTE Prophylaxis Risk score (from Ns)>0 risk: 2 SCD applied (from Ns): Yes Pharmacological prophylaxis: NA/contraindicated Pharm contraindication: surgical contra Lines/Catheters [facility]from [facility] Peripheral IV Assessment/Plan Hospital Course Summary Assessment and Plan: Assessment: Dilated appendix with underlying cecal wall thickening concerning for neoplasm -CEA-- 18.4 -CA 19-9-- 325 -MRI- 12/31/18- Area of altered signal intensity in the region of the cecum suspicious for neoplasm when correlated with recent CT. Hepatic lesion -MRI- 12/31/18- A 1 cm short axis pericaval node in the upper abdomen, suspicious for malignancy. While there is significant motion artifact limiting assessment post contrast sequences, 6 cm posterior right hepatic lobe lesion as described in detail above is suggestive of metastasis, much less likely a cavernous hemangioma. Family history of colon ca i.e. father Current everyday smoker-1/2 pack per day Plan: Pt started colon prep last night and this am without BM- CT does not reveal ob struction- no increase in abdominal distension or pain Re-start clear liquid diet today with plan to start enemas with GoLYTELY prep today n.p.o. after 01/02/19 0800- reschdeue colonoscopy for tomorrow 01/02/19 Patient seen in collaboration with Dr. Aguilar Subjective: Course reviewed with nursing staff Patient interviewed and examined All labs, imaging and other results reviewed The patient resting in bed, no over night events No Bm as noted above. Pt denies n/v, continues to c/o lower abd pain Exam PHYSICAL EXAMINATION: GENERAL: Alert & oriented x 3, in no acute distress SKIN: No lesion HEAD: Normocephalic, atraumatic, no tenderness. EYES: Pupils equal reactive to light and accommodation, no discharge. EARS/NOSE AND THROAT: Ears normal, nose normal. NECK: Supple, no masses CHEST: Inspection within normal limits. CARDIOVASCULAR: Heart: Regular rate and rhythm RESPIRATORY: Lungs clear to auscultation GASTROINTESTINAL AND LIVER: Abdomen: Soft, lower abd tenderness, non-distended, no organomegaly, no ascites, no guarding, no rebound tenderness, normoactive bowel sounds. Rectal: Deferred. EXTREMITIES: No cyanosis, clubbing or edema. Result Diagram: 01/01/19 0438 01/01/19 0438 Results 24hrs Laboratory Tests Test 01/01/19 04:38 01/01/19 05:00 White Blood Count 17.5 H Red Blood Count 4.43 L Hemoglobin 13.8 L Hematocrit 41.9 L Mean Corpuscular Volume 94.6 Mean Corpuscular Hemoglobin 31.2 Mean Corpuscular Hemoglobin Concent 32.9 Red Cell Distribution Width 12.7 Platelet Count 306 Mean Platelet Volume 9.4 Immature Granulocytes % 0.500 H Neutrophils % 85.8 H Lymphocytes % 6.2 L Monocytes % 6.8 Eosinophils % 0.5 Basophils % 0.2 Nucleated Red Blood Cells % 0.0 Immature Granulocytes # 0.090 H Neutrophils # 15.0 H Lymphocytes # 1.1 Monocytes # 1.2 H Eosinophils # 0.1 Basophils # 0.0 Nucleated Red Blood Cells # 0.0 Sodium Level 138 Potassium Level 4.0 Chloride Level 100 Carbon Dioxide Level 31 Anion Gap 7 Blood Urea Nitrogen 10 Creatinine 0.81 Est Glomerular Filtrat Rate mL/min > 60 Glucose Level 121 Hemoglobin A1c 5.3 Calcium Level 8.8 Phosphorus Level 3.2 Magnesium Level 1.9 Total Bilirubin 0.8 Direct Bilirubin 0.00 Indirect Bilirubin 0.8 Aspartate Amino Transf (AST/SGOT) 20 Alanine Aminotransferase (ALT/SGPT) 22 Alkaline Phosphatase 84 Total Protein 6.1 # Albumin 3.5 Globulin 2.60 Albumin/Globulin Ratio 1.34 Triglycerides Level 67 Cholesterol Level 163 LDL Cholesterol, Calculated 99 HDL Cholesterol 51 Cholesterol/HDL Ratio 3.1 Thyroid Stimulating Hormone (TSH) 0.206 L Free Thyroxine 1.23 Exam/Review of Systems Exam Vitals Vital Signs Date Temp Pulse Resp B/P (MAP) Pulse Ox O2 O2 Flow FiO2 Time Delivery Rate 01/01/19 97.2 78 19 121/72 98 07:46 (88) 12/31/18 Room Air 15:02 Intake and Output 12/31/18 12/31/18 01/01/19 1515:00 23:00 07:00 IntakeIntake Total 100 ml 1420 ml 1920 ml BalanceBalance 100 ml 1420 ml 1920 ml Results Results 24hrs Laboratory Tests Test 01/01/19 04:38 01/01/19 05:00 White Blood Count 17.5 H Red Blood Count 4.43 L Hemoglobin 13.8 L Hematocrit 41.9 L Mean Corpuscular Volume 94.6 Mean Corpuscular Hemoglobin 31.2 Mean Corpuscular Hemoglobin Concent 32.9 Red Cell Distribution Width 12.7 Platelet Count 306 Mean Platelet Volume 9.4 Immature Granulocytes % 0.500 H Neutrophils % 85.8 H Lymphocytes % 6.2 L Monocytes % 6.8 Eosinophils % 0.5 Basophils % 0.2 Nucleated Red Blood Cells % 0.0 Immature Granulocytes # 0.090 H Neutrophils # 15.0 H Lymphocytes # 1.1 Monocytes # 1.2 H Eosinophils # 0.1 Basophils # 0.0 Nucleated Red Blood Cells # 0.0 Sodium Level 138 Potassium Level 4.0 Chloride Level 100 Carbon Dioxide Level 31 Anion Gap 7 Blood Urea Nitrogen 10 Creatinine 0.81 Est Glomerular Filtrat Rate mL/min > 60 Glucose Level 121 Hemoglobin A1c 5.3 Calcium Level 8.8 Phosphorus Level 3.2 Magnesium Level 1.9 Total Bilirubin 0.8 Direct Bilirubin 0.00 Indirect Bilirubin 0.8 Aspartate Amino Transf (AST/SGOT) 20 Alanine Aminotransferase (ALT/SGPT) 22 Alkaline Phosphatase 84 Total Protein 6.1 # Albumin 3.5 Globulin 2.60 Albumin/Globulin Ratio 1.34 Triglycerides Level 67 Cholesterol Level 163 LDL Cholesterol, Calculated 99 HDL Cholesterol 51 Cholesterol/HDL Ratio 3.1 Thyroid Stimulating Hormone (TSH) 0.206 L Free Thyroxine 1.23 Medications Medication Current Medications Dextrose/Sodium Chloride 1,000 ml @ 120 mls/hr Q8H20M IV Last administered on 01/01/19at 08:22; Admin Dose 120 MLS/HR; Start 12/31/18 at 07:46 IV Flush (NS 3 ml) 3 ml PER PROTOCOL IV ; Start 12/31/18 at 08:00 Ondansetron HCl (Zofran Inj) 4 mg Q6H PRN IV NAUSEA/VOMITING; Start 12/31/18 at 08:00 Morphine Sulfate (morphine) 2 mg Q4H PRN IV .SEVERE PAIN 7-10 Last administered on 01/01/19at 10:23; Admin Dose 2 MG; Start 12/31/18 at 08:00 Pantoprazole (Protonix Iv) 40 mg DAILY@06 IV Last administered on 01/01/19at 06:21; Admin Dose 40 MG; Start 01/01/19 at 06:00 Piperacillin Sod/ Tazobactam Sod 100 ml @ 200 mls/hr Q6 IVPB Last administered on 01/01/19at 11:31; Admin Dose 200 MLS/HR; Start 12/31/18 at 09:00 ESTHER LEONE Jan 01, 2019 13:44
[2019-01-01] MEDS ORDERED: MINERAL OIL 133 ML ENEMA PR ONE ×2 (14:00→16:00)
[2019-01-01 14:23] VITALS: BP 118/64; PULSE 82; RESP 18
[2019-01-01] MEDS: ONDANSETRON 4 MG INJ IV PRN (15:50)
[2019-01-01] MEDS ORDERED: PEG/ELECTROLYTES 4L BTL PO ONE (16:30)
--- NOTE | 2019-01-01 19:06 | PN ---
Date/Time of Note Date/Time of Note DATE: 01/01/19 TIME: 19:06 Assessment/Plan Lines/Catheters IV Catheter Type (from Nrs): Peripheral IV Assessment/Plan Assessment/Plan Plan is to colonoscopy per GI and await colonoscopy results. Subjective 24 Hr Interval Summary Patient feels more or less the same, no pain, patient is in bowel prep regimen for tomorrow colonoscopy. On exam the abdomen is soft not tender. Exam/Review of Systems Vital Signs Vitals Vital Signs Date Temp Pulse Resp B/P (MAP) Pulse Ox O2 O2 Flow FiO2 Time Delivery Rate 01/01/19 97.2 82 18 118/64 97 14:23 (82) 12/31/18 Room Air 15:02 Intake and Output 12/31/18 12/31/18 01/01/19 1515:00 23:00 07:00 IntakeIntake Total 100 ml 1420 ml 1920 ml BalanceBalance 100 ml 1420 ml 1920 ml Results Result Diagram: 01/01/19 0438 01/01/19 0438 FORTINO SHIPLEY MD Jan 01, 2019 19:06
[2019-01-01 20:14] VITALS: BP 116/70; PULSE 69; RESP 17
[2019-01-02] VITALS (13 sets, daily range): BP systolic 102–126; BP diastolic 58–82; PULSE 49–71; RESP 11–20
[2019-01-02] MEDS: DEXTROSE 5%-0.45% NACL 1,000 ML IV SCH ×3 (02:24→18:06)
[2019-01-02] MEDS: PANTOPRAZOLE 40 MG INJ IV SCH (05:19)
[2019-01-02] MEDS: PIPER-TAZO 3.375 GM IV (PMX) 100 ML IVPB SCH ×3 (05:19→18:31)
[2019-01-02] MEDS ORDERED: PEG/ELECTROLYTES 4L BTL PO ONE (06:00)
[2019-01-02] MEDS ORDERED: BISACODYL (EC) 5 MG TAB PO ONE (06:30)
[2019-01-02] MEDS: ONDANSETRON 4 MG INJ IV PRN (09:52)
--- NOTE | 2019-01-02 14:01 | PN ---
Date/Time of Note Date/Time of Note DATE: 01/02/19 TIME: 14:00 Assessment/Plan VTE Prophylaxis Risk score (from Ns)>0 risk: 2 SCD applied (from Ns): Yes Pharmacological prophylaxis: NA/contraindicated Pharm contraindication: low risk/ambulating Lines/Catheters IV [facility]ter Type (from [facility]): Peripheral IV Assessment/Plan Assessment/Plan 43 yo man with history of spontaneous pneumothorax presents with acute appendicitis. 1. Cecal thickening with liver mass - Concerning for colon cancer with mets to the liver - Plan for colonoscopy with biopsy to confirm diagnosis - If cancer, will need hemicolectomy and partial liver resection. - Also on IV antibiotics for possible appendicitis. 2. UTI - Cultures negative. 3. History of a spontaneous right-sided pneumothorax requiring chest tube insertion: -No acute issue Result Diagram: 01/01/1943701/01/19437 Subjective 24 Hr Interval Summary Free Text/Dictation The patient is sleeping comfortably. Still doing bowel prep, starting having bowel movements last night. Exam/Review of Systems Exam Vitals Vital Signs Date Temp Pulse Resp B/P (MAP) Pulse Ox O2 O2 Flow FiO2 Time Delivery Rate 01/02/19 98.5 56 15 118/80 100 Room Air 07:27 (93) Intake and Output 01/01/19 01/01/19 01/02/19 1515:00 23:00 07:00 IntakeIntake Total 820 ml 2660 ml 1280 ml BalanceBalance 820 ml 2660 ml 1280 ml Exam Gen: Well appearing, man supine in gurney in no acute distress. Eyes: PERRL, mild icterus HEENT: Moist mucous membranes, clear oropharynx Neck: Supple, no lymphadenopathy, no JVD Card: Regular rate and rhythm, no murmurs Pulm: Clear to auscultation bilaterally. Abd: Soft, guarding throughout, nondistended, not tympanic. Ext: No cyanosis/clubbing/edema. Skin: No jaundice. Warm, dry, well perfused. Medications Medication Current Medications Dextrose/Sodium Chloride 1,000 ml @ 120 mls/hr Q8H20M IV Last administered on 01/02/19at 09:52; Admin Dose 120 MLS/HR; Start 12/31/18 at 07:46 IV Flush (NS 3 ml) 3 ml PER PROTOCOL IV ; Start 12/31/18 at 08:00 Ondansetron HCl (Zofran Inj) 4 mg Q6H PRN IV NAUSEA/VOMITING Last administered on 01/02/19 09:52; Admin Dose 4 MG; Start 12/31/18 at 08:00 Morphine Sulfate (morphine) 2 mg Q4H PRN IV .SEVERE PAIN 7-10 Last administered on 01/01/19at 10:23; Admin Dose 2 MG; Start 12/31/18 at 08:00 Pantoprazole (Protonix Iv) 40 mg DAILY@06 IV Last administered on 01/02/19 05:19; Admin Dose 40 MG; Start 01/01/19 at 06:00 Piperacillin Sod/ Tazobactam Sod 100 ml @ 200 mls/hr Q6 IVPB Last administered on 01/02/19 11:25; Admin Dose 200 MLS/HR; Start 12/31/18 at 09:00 ALLISON FIGUEROA MD Jan 02, 2019 14:01
--- NOTE | 2019-01-02 17:03 | HPN ---
Date/Time of Note Date/Time of Note DATE: 01/02/19 TIME: 17:03 Interval H&P Admission Note Pt. seen H&P reviewed: No system changes ALVIN GARCIA MD Jan 02, 2019 17:03
[2019-01-02] MEDS ORDERED: PROPOFOL 40 ML ONE (17:08)
[2019-01-02] MEDS ORDERED: LIDOCAINE 100 MG SYRINGE ONE (17:08)
--- NOTE | 2019-01-02 17:08 | PREAC ---
Date/Time of Note Date/Time of Note DATE: 01/02/19 TIME: 17:07 Anesthesia Eval and Record Evaluation Time Pre-Procedure Interview DATE: 01/02/19 TIME: 17:07 Age 43 Sex male NPO: 8 hrs Preoperative diagnosis THICKENED CECUM ON ABDOMINAL CT SCAN Planned procedure COLONOSCOPY WITH BIOPSIES Past Medical History Past Medical History: Includes (HX OF SPONTANEOUS PNEUMOTHORAX) Surgery & Anesthesia Issues No known issue Meds Anticoagulation: No Beta James within 24 hr: No Reason Beta James not given: Pt. not on B-James Active Scripts Ciprofloxacin Hcl* (Ciprofloxacin Hcl*) 500 Mg Tablet, 500 MG PO BID for 7 Days, TAB Prov:CHEMO SIMSS [place]. DO 12/31/18 Hydrocodone/Acetaminophen ([place] 10-325 Tablet) 1 Each Tablet, 1 TAB PO Q6H PRN for PAIN, #12 TAB Prov:BRE SIMS DO 12/31/18 Ondansetron (Ondansetron Odt) 8 Mg Tab.rapdis, 8 MG PO Q6H PRN for NAUSEA AND/OR VOMITING, #10 TAB Prov:CHEMO SIMSS A. DO 12/31/18 Current Medications Dextrose/Sodium Chloride 1,000 ml @ 120 mls/hr Q8H20M IV Last administered on 01/02/19at 09:52; Admin Dose 120 MLS/HR; Start 12/31/18 at 07:46 IV Flush (NS 3 ml) 3 ml PER PROTOCOL IV ; Start 12/31/18 at 08:00 Ondansetron HCl (Zofran Inj) 4 mg Q6H PRN IV NAUSEA/VOMITING Last administered on 01/02/19at 09:52; Admin Dose 4 MG; Start 12/31/18 at 08:00 Morphine Sulfate (morphine) 2 mg Q4H PRN IV .SEVERE PAIN 7-10 Last administered on 01/01/19at 10:23; Admin Dose 2 MG; Start 12/31/18 at 08:00 Pantoprazole (Protonix Iv) 40 mg DAILY@06 IV Last administered on 01/02/19at 05:19; Admin Dose 40 MG; Start 01/01/19 at 06:00 Piperacillin Sod/ Tazobactam Sod 100 ml @ 200 mls/hr Q6 IVPB Last administered on 01/02/19at 11:25; Admin Dose 200 MLS/HR; Start 12/31/18 at 09:00 Meds reviewed: Yes Allergies Coded Allergies: No Known Allergy (Unverified , 12/31/18) Allergies Reviewed: Yes Labs/Studies Labs Reviewed: Reviewed by anesthesiologist Result Diagram: 01/01/19 0438 01/01/19 0438 test: N/A Pre-procedure Exam Last vitals Vital Signs Date Temp Pulse Resp B/P (MAP) Pulse Ox O2 O2 Flow FiO2 Time Delivery Rate 01/02/19 99.1 57 16 102/70 99 Room Air 15:29 (81) Airway: Adequate mouth opening, Adequate thyromental dist Mallampati: Mallampati II Teeth: Normal Lung: Normal Heart: Normal ASA Physical Status ASA physical status: 1 Emergency: None Planned Anesthetic General/MAC: MAC Planned Pain Management Parenteral pain med Pre-operative Attestations Prior to commencing anesthesia and surgery, the patient was re-evaluated, there was verification of: *The patient's identity *The results of appropriate recent lab work and preoperative vital signs *The above evaluation not changing prior to induction *Anesthetic plan, risk benefits, alternative and complications discussed with patient/family; questions answered; patient/family understands, accepts and wishes to proceed. Rolo Matthews M.D. Jan 02, 2019 17:08
--- NOTE | 2019-01-02 18:24 | PAC ---
Date/Time of Note Date/Time of Note DATE: 01/02/19 TIME: 18:24 Post-Anesthesia Notes Post-Anesthesia Note Last documented vital signs Vital Signs Date Temp Pulse Resp B/P (MAP) Pulse Ox O2 O2 Flow FiO2 Time Delivery Rate 01/02/19 99.1 57 16 102/70 99 Room Air 15:29 (81) Activity: WNL Respiratory function: WNL Cardiovascular function: WNL Mental status: Baseline Pain reasonably controlled: Yes Hydration appropriate: Yes Nausea/Vomiting absent: Yes Rolo Matthews M.D. Jan 02, 2019 18:24
[2019-01-02] MEDS: morphine 2 MG INJ IV PRN (21:46)
[2019-01-03] MEDS: PIPER-TAZO 3.375 GM IV (PMX) 100 ML IVPB SCH ×5 (00:12→23:58)
[2019-01-03] MEDS: DEXTROSE 5%-0.45% NACL 1,000 ML IV SCH (00:15)
[2019-01-03 02:10] VITALS: BP 90/50; PULSE 60; RESP 20
[2019-01-03] MEDS ORDERED: SOD CHLORIDE 0.9% 500 ML IV ONE (03:00)
[2019-01-03 03:49] VITALS: BP 103/66; PULSE 60; RESP 22
[2019-01-03] MEDS: PANTOPRAZOLE 40 MG INJ IV SCH (05:11)
[2019-01-03] MEDS ORDERED: POTASSIUM CHLORIDE (SR) 20 MEQ TAB PO ONE (05:56)
[2019-01-03 08:17] VITALS: BP 100/68; PULSE 54; RESP 16
[2019-01-03] MEDS: morphine 2 MG INJ IV PRN ×4 (10:18→22:35)
--- NOTE | 2019-01-03 10:42 | PN ---
Date/Time of Note Date/Time of Note DATE: 01/03/19 TIME: 10:40 Assessment/Plan VTE Prophylaxis Risk score (from Ns)>0 risk: 3 SCD applied (from Ns): Yes Pharmacological prophylaxis: NA/contraindicated Pharm contraindication: low risk/ambulating Lines/Catheters IV Catheter Type (from Nrsg): Peripheral IV Urinary Cath still in place: No Assessment/Plan Hospital Course Summary Assessment and Plan: Assessment: Dilated appendix with underlying cecal wall thickening concerning for neoplasm -CEA-- 18.4 -CA 19-9-- 325 -MRI- 12/31/18- Area of altered signal intensity in the region of the cecum suspicious for neoplasm when correlated with recent CT. Colonoscopy 01/02/19- cecal mass concerning for malignancy, bx obtained Hepatic lesion -MRI- 12/31/18- A 1 cm short axis pericaval node in the upper abdomen, suspicious for malignancy. While there is significant motion artifact limiting assessment post contrast sequences, 6 cm posterior right hepatic lobe lesion as described in detail above is suggestive of metastasis, much less likely a cavernous hemangioma. Family history of colon ca i.e. father Current everyday smoker-1/2 pack per day Plan: Await bx results Continue clear liquid diet Pain management Patient seen in collaboration with Dr. Aguilar Subjective: Course reviewed with nursing staff Patient interviewed and examined All labs, imaging and other results reviewed Resting in bed, discussed results of colonoscopy awaiting bx pathology. Pain well covered with pain medication. No c/o n/v. Exam PHYSICAL EXAMINATION: GENERAL: Alert & oriented x 3, in no acute distress SKIN: No lesion HEAD: Normocephalic, atraumatic, no tenderness. EYES: Pupils equal reactive to light and accommodation, no discharge. EARS/NOSE AND THROAT: Ears normal, nose normal. NECK: Supple, no masses CHEST: Inspection within normal limits. CARDIOVASCULAR: Heart: Regular rate and rhythm RESPIRATORY: Lungs clear to auscultation GASTROINTESTINAL AND LIVER: Abdomen: Soft, lower abd tenderness, non-distended, no organomegaly, no ascites, no guarding, no rebound tenderness, normoactive bowel sounds. Rectal: Deferred. EXTREMITIES: No cyanosis, clubbing or edema. Result Diagram: 01/03/19 0437 01/03/19 0437 Results 24hrs Laboratory Tests Test 01/03/19 04:37 White Blood Count 9.8 # Red Blood Count 3.69 L Hemoglobin 11.6 L Hematocrit 35.5 L Mean Corpuscular Volume 96.2 Mean Corpuscular Hemoglobin 31.4 Mean Corpuscular Hemoglobin Concent 32.7 Red Cell Distribution Width 12.5 Platelet Count 254 Mean Platelet Volume 9.6 Immature Granulocytes % 0.400 Neutrophils % 78.3 H Lymphocytes % 11.7 L Monocytes % 7.6 Eosinophils % 1.5 Basophils % 0.5 Nucleated Red Blood Cells % 0.0 Immature Granulocytes # 0.040 H Neutrophils # 7.7 H Lymphocytes # 1.2 Monocytes # 0.8 Eosinophils # 0.2 Basophils # 0.1 Nucleated Red Blood Cells # 0.0 Sodium Level 140 Potassium Level 3.0 L Chloride Level 102 Carbon Dioxide Level 34 H Anion Gap 4 L Blood Urea Nitrogen 3 L Creatinine 0.82 Est Glomerular Filtrat Rate mL/min > 60 Glucose Level 138 Calcium Level 8.0 L Total Bilirubin 0.5 Direct Bilirubin 0.00 Indirect Bilirubin 0.5 Aspartate Amino Transf (AST/SGOT) 18 Alanine Aminotransferase (ALT/SGPT) 20 Alkaline Phosphatase 52 Total Protein 5.6 L Albumin 2.8 L Globulin 2.80 Albumin/Globulin Ratio 1.00 Exam/Review of Systems Exam Vitals Vital Signs Date Temp Pulse Resp B/P (MAP) Pulse Ox O2 O2 Flow FiO2 Time Delivery Rate 01/03/19 98.1 54 16 100/68 98 Room Air 08:17 (79) Intake and Output 01/02/19 01/02/19 01/03/19 1515:00 23:00 07:00 IntakeIntake Total 740 ml 1220 ml 1730 ml BalanceBalance 740 ml 1220 ml 1730 ml Results Results 24hrs Laboratory Tests Test 01/03/19 04:37 White Blood Count 9.8 # Red Blood Count 3.69 L Hemoglobin 11.6 L Hematocrit 35.5 L Mean Corpuscular Volume 96.2 Mean Corpuscular Hemoglobin 31.4 Mean Corpuscular Hemoglobin Concent 32.7 Red Cell Distribution Width 12.5 Platelet Count 254 Mean Platelet Volume 9.6 Immature Granulocytes % 0.400 Neutrophils % 78.3 H Lymphocytes % 11.7 L Monocytes % 7.6 Eosinophils % 1.5 Basophils % 0.5 Nucleated Red Blood Cells % 0.0 Immature Granulocytes # 0.040 H Neutrophils # 7.7 H Lymphocytes # 1.2 Monocytes # 0.8 Eosinophils # 0.2 Basophils # 0.1 Nucleated Red Blood Cells # 0.0 Sodium Level 140 Potassium Level 3.0 L Chloride Level 102 Carbon Dioxide Level 34 H Anion Gap 4 L Blood Urea Nitrogen 3 L Creatinine 0.82 Est Glomerular Filtrat Rate mL/min > 60 Glucose Level 138 Calcium Level 8.0 L Total Bilirubin 0.5 Direct Bilirubin 0.00 Indirect Bilirubin 0.5 Aspartate Amino Transf (AST/SGOT) 18 Alanine Aminotransferase (ALT/SGPT) 20 Alkaline Phosphatase 52 Total Protein 5.6 L Albumin 2.8 L Globulin 2.80 Albumin/Globulin Ratio 1.00 Medications Medication Current Medications IV Flush (NS 3 ml) 3 ml PER PROTOCOL IV ; Start 12/31/18 at 08:00 Ondansetron HCl (Zofran Inj) 4 mg Q6H PRN IV NAUSEA/VOMITING Last administered on 01/02/19 09:52; Admin Dose 4 MG; Start 12/31/18 at 08:00 Morphine Sulfate (morphine) 2 mg Q4H PRN IV .SEVERE PAIN 7-10 Last administered on 01/03/19 10:18; Admin Dose 2 MG; Start 12/31/18 at 08:00 Pantoprazole (Protonix Iv) 40 mg DAILY@06 IV Last administered on 01/03/19 05:11; Admin Dose 40 MG; Start 01/01/19 at 06:00 Piperacillin Sod/ Tazobactam Sod 100 ml @ 200 mls/hr Q6 IVPB Last administered on 01/03/19 05:12; Admin Dose 200 MLS/HR; Start 12/31/18 at 09:00 ESTHER LEONE Jan 03, 2019 10:42
[2019-01-03 14:59] VITALS: BP 101/87; PULSE 55; RESP 16
--- NOTE | 2019-01-03 15:15 | PN ---
Date/Time of Note Date/Time of Note DATE: 01/03/19 TIME: 15:12 Assessment/Plan VTE Prophylaxis Risk score (from Ns)>0 risk: 3 SCD applied (from Ns): Yes Pharmacological prophylaxis: NA/contraindicated Pharm contraindication: low risk/ambulating Lines/Catheters IV C[facility]ter Type (from [facility] Peripheral IV Urinary Cath still in place: No Assessment/Plan Assessment/Plan 43 yo man with history of spontaneous pneumothorax presents with acute appendicitis. 1. Cecal thickening with liver mass - Concerning for colon cancer with mets to the liver - s/p colonoscopy 01/02 with malignant-appearing cecal mass, biopsies taken. - Pathology pending. - If cancer, will need hemicolectomy and partial liver resection. - Dr. More following. 2. Possible appendicitis - Patient initially presented with acute onset abdominal pain, CT concerning for appendicitis. - Will plan on 10 day course of antibiotics OR until surgery, whichever comes first. - IV zosyn. 3. History of a spontaneous right-sided pneumothorax requiring chest tube insertion: -No acute issue Result Diagram: 01/03/1943601/03/19436 Subjective 24 Hr Interval Summary Free Text/Dictation No acute overnight events. Patient doing well. Exam/Review of Systems Exam Vitals Vital Signs Date Temp Pulse Resp B/P (MAP) Pulse Ox O2 O2 Flow FiO2 Time Delivery Rate 01/03/19 98.3 55 16 101/87 97 Room Air 14:59 (92) Intake and Output 01/02/19 01/02/19 01/03/19 1515:00 23:00 07:00 IntakeIntake Total 740 ml 1220 ml 1730 ml BalanceBalance 740 ml 1220 ml 1730 ml Exam Gen: Well appearing, man supine in gurney in no acute distress. Eyes: PERRL, mild icterus HEENT: Moist mucous membranes, clear oropharynx Neck: Supple, no lymphadenopathy, no JVD Card: Regular rate and rhythm, no murmurs Pulm: Clear to auscultation bilaterally. Abd: Soft, guarding throughout, nondistended, not tympanic. Ext: No cyanosis/clubbing/edema. Skin: No jaundice. Warm, dry, well perfused. Results Results 24hrs Laboratory Tests Test 01/03/19 04:37 White Blood Count 9.8 # Red Blood Count 3.69 L Hemoglobin 11.6 L Hematocrit 35.5 L Mean Corpuscular Volume 96.2 Mean Corpuscular Hemoglobin 31.4 Mean Corpuscular Hemoglobin Concent 32.7 Red Cell Distribution Width 12.5 Platelet Count 254 Mean Platelet Volume 9.6 Immature Granulocytes % 0.400 Neutrophils % 78.3 H Lymphocytes % 11.7 L Monocytes % 7.6 Eosinophils % 1.5 Basophils % 0.5 Nucleated Red Blood Cells % 0.0 Immature Granulocytes # 0.040 H Neutrophils # 7.7 H Lymphocytes # 1.2 Monocytes # 0.8 Eosinophils # 0.2 Basophils # 0.1 Nucleated Red Blood Cells # 0.0 Sodium Level 140 Potassium Level 3.0 L Chloride Level 102 Carbon Dioxide Level 34 H Anion Gap 4 L Blood Urea Nitrogen 3 L Creatinine 0.82 Est Glomerular Filtrat Rate mL/min > 60 Glucose Level 138 Calcium Level 8.0 L Total Bilirubin 0.5 Direct Bilirubin 0.00 Indirect Bilirubin 0.5 Aspartate Amino Transf (AST/SGOT) 18 Alanine Aminotransferase (ALT/SGPT) 20 Alkaline Phosphatase 52 Total Protein 5.6 L Albumin 2.8 L Globulin 2.80 Albumin/Globulin Ratio 1.00 Medications Medication Current Medications IV Flush (NS 3 ml) 3 ml PER PROTOCOL IV ; Start 12/31/18 at 08:00 Ondansetron HCl (Zofran Inj) 4 mg Q6H PRN IV NAUSEA/VOMITING Last administered on 01/02/19 09:52; Admin Dose 4 MG; Start 12/31/18 at 08:00 Morphine Sulfate (morphine) 2 mg Q4H PRN IV .SEVERE PAIN 7-10 Last administered on 01/03/19 14:33; Admin Dose 2 MG; Start 12/31/18 at 08:00 Pantoprazole (Protonix Iv) 40 mg DAILY@06 IV Last administered on 01/03/19 05:11; Admin Dose 40 MG; Start 01/01/19 at 06:00 Piperacillin Sod/ Tazobactam Sod 100 ml @ 200 mls/hr Q6 IVPB Last administered on 01/03/19 12:05; Admin Dose 200 MLS/HR; Start 12/31/18 at 09:00 ALLISON FIGUEROA MD Jan 03, 2019 15:15
[2019-01-03 19:30] VITALS: BP 95/61; PULSE 51; RESP 20
[2019-01-04 02:05] VITALS: BP 104/66; PULSE 56; RESP 20
[2019-01-04] MEDS: PANTOPRAZOLE 40 MG INJ IV SCH (06:06)
[2019-01-04] MEDS: PIPER-TAZO 3.375 GM IV (PMX) 100 ML IVPB SCH ×3 (06:06→17:52)
[2019-01-04] MEDS: morphine 2 MG INJ IV PRN ×3 (06:07→14:47)
[2019-01-04 08:43] VITALS: BP 94/54; PULSE 53; RESP 20
[2019-01-04] MEDS ORDERED: POTASSIUM CHLORIDE 20 MEQ POWDER FOR ORAL SOLN PO ONE (10:30)
--- NOTE | 2019-01-04 10:30 | PN ---
Date/Time of Note Date/Time of Note DATE: 01/04/19 TIME: 10:21 Assessment/Plan VTE Prophylaxis Risk score (from [facility] [place] risk: 3 SCD applied (from [facility] [place] Yes Pharmacological prophylaxis: NA/contraindicated Pharm contraindication: low risk/ambulating Lines/Catheters IV Catheter Type (from [facility]): Peripheral IV Urinary Cath still in place: No Assessment/Plan Assessment/Plan 43 yo man with history of spontaneous pneumothorax presents with acute appendicitis; found to have colon adenocarcinoma of the cecum with 6.2 cm R lobe liver mass. 1. Colon adenocarcinoma with liver mass - s/p colonoscopy 01/02 with malignant-appearing cecal mass, biopsies taken. - Pathology positive for moderately-differentiated adenocarcinoma. - I will get a CT chest to complete staging - Dr. More is following. - I will consult Dr. Tobias also. 2. Possible appendicitis - Patient initially presented with acute onset abdominal pain, CT concerning for appendicitis. - Plan for nonoperative management with antibiotics. - Currently on IV zosyn. Will plan for 10 day course (12/31-01/09). In case of discharge, can switch to cipro+flagyl. 3. History of a spontaneous right-sided pneumothorax requiring chest tube insertion: -No acute issue DVT: SCDs GI: None Result Diagram: 01/03/197 01/03/19436 Subjective 24 Hr Interval Summary Free Text/Dictation No acute overnight events. Patient tolerating clear liquid diet. He's very hungry. I informed him of the pathologic diagnosis of cancer. I answered some questions. Exam/Review of Systems Exam Vitals Vital Signs Date Temp Pulse Resp B/P (MAP) Pulse Ox O2 O2 Flow FiO2 Time Delivery Rate 01/04/19 98.4 53 20 94/54 (67) 95 08:43 01/04/19 Room Air 02:05 Intake and Output 01/03/19 01/03/19 01/04/19 1515:00 23:00 07:00 IntakeIntake Total 1140 ml 700 ml 450 ml OutputOutput Total 200 ml BalanceBalance 940 ml 700 ml 450 ml Exam Gen: Well appearing, man supine in gurney in no acute distress. Eyes: PERRL, mild icterus HEENT: Moist mucous membranes, clear oropharynx Neck: Supple, no lymphadenopathy, no JVD Card: Regular rate and rhythm, no murmurs Pulm: Clear to auscultation bilaterally. Abd: Soft, guarding throughout, nondistended, not tympanic. Ext: No cyanosis/clubbing/edema. Skin: No jaundice. Warm, dry, well perfused. Medications Medication Current Medications IV Flush (NS 3 ml) 3 ml PER PROTOCOL IV ; Start 12/31/18 at 08:00 Ondansetron HCl (Zofran Inj) 4 mg Q6H PRN IV NAUSEA/VOMITING Last administered on 01/02/19 09:52; Admin Dose 4 MG; Start 12/31/18 at 08:00 Morphine Sulfate (morphine) 2 mg Q4H PRN IV .SEVERE PAIN 7-10 Last administered on 01/04/19 06:07; Admin Dose 2 MG; Start 12/31/18 at 08:00 Piperacillin Sod/ Tazobactam Sod 100 ml @ 200 mls/hr Q6 IVPB Last administered on 01/04/19 06:06; Admin Dose 200 MLS/HR; Start 12/31/18 at 09:00 Potassium Chloride (Potassium Chloride Pwd/Soln) 40 meq ONCE ONCE PO ; Start 01/04/19 at 10:30; Stop 01/04/19 at 10:31 ALLISON FIGUEROA MD Jan 04, 2019 10:30
--- NOTE | 2019-01-04 13:45 | CONS ---
Assessment/Plan Assessment/Plan Hospital Course (Demo Recall) 43 yo smoker with newly dx'ed colon ca CT abdo pelvis shows liver mass, MRI recommended possible mets on MRI abdo but there is significant motion artifact needs triple phase CT scan, if cannot get this in the hospital would recommend PET scan as outpt recommend liver surgery evaluation Dr Cassidy check Kras , MSI and NRAS, NTRK mutations, her 2 testing the liver lesion is suspicious but we need more definitive assessment of this if he has a solitary met, options are upfront resection of colon ca + liver met followed by chemo or upfront chemo then eventual resection Consultation Date/Type/Reason Admit Date/Time Dec 31, 2018 at 06:26 Date/Time of Note DATE: 01/04/19 TIME: 13:45 Hx of Present Illness 43-year-old male with history of spontaneous pneumothorax requiring chest tube insertion who presented to ER complaining of abdominal pain. CT abdomen/pelvis shows the followin. Dilated fluid filled appendix measuring up to 1.6 cm diameter, appearance consistent with appendicitis with mucocele. 2. Mildly thickened heterogeneous appearance of the bowel wall at the cecal base raises concern for underlying neoplasm. 3. Ill-defined 6.2 cm low attenuation lesion within the right lobe of the liver, differential includes metastatic disease, primary neoplasm and infection. Consider further evaluation with MRI. MRI abdo w/ and w/o:1. Area of altered signal intensity in the region of the cecum suspicious for neoplasm when correlated with recent CT. 2. A 1 cm short axis pericaval node in the upper abdomen, suspicious for malignancy. 3. While there is significant motion artifact limiting assessment post contrast sequences, 6 cm posterior right hepatic lobe lesion as described in detail above is suggestive of metastasis, much less likely a cavernous hemangioma. CT liver triple phase may be obtained for assessment of postcontrast enhancement pattern. he has been seen by GI and is s/p colonoscopy: Colonoscopy 01/02/19- cecal mass concerning for malignancy, Pathology: Adenocarcinoma, moderately-differentiated tumor markers CEA: 18.4, -CA 19-9: 325 CT chest w/o contrast 01/04/19 : Hyperinflated lungs with a moderate biapical paraseptal emphysematous disease and diffuse bronchial wall thickening compatible with sequelae of chronic obstructive pulmonary disease. No evidence of mass, lymphadenopathy or pulmonary metastatic disease. Constitutional: no complaints, improved Eyes: no complaints ENT: no complaints Respiratory: no complaints Cardiovascular: no complaints Gastrointestinal: no complaints Genitourinary: no complaints Past Medical History Medical History: other (See HPI) Home Meds Active Scripts Ciprofloxacin Hcl* (Ciprofloxacin Hcl*) 500 Mg Tablet, 500 MG PO BID for 7 Days, TAB Prov:ROSS SIMSCARMENS [place]. DO 12/31/18 Hydrocodone/Acetaminophen (Andes 10-325 Tablet) 1 Each Tablet, 1 TAB PO Q6H PRN for PAIN, #12 TAB Prov:BRITTANYVEROBRE [place]. DO 12/31/18 Ondansetron (Ondansetron Odt) 8 Mg Tab.rapdis, 8 MG PO Q6H PRN for NAUSEA AND/OR VOMITING, #10 TAB Prov:CHUCKCLEVEVEROCHEMOS A. DO 12/31/18 Medications Current Medications IV Flush (NS 3 ml) 3 ml PER PROTOCOL IV ; Start 12/31/18 at 08:00 Ondansetron HCl (Zofran Inj) 4 mg Q6H PRN IV NAUSEA/VOMITING Last administered on 01/02/19at 09:52; Admin Dose 4 MG; Start 12/31/18 at 08:00 Morphine Sulfate (morphine) 2 mg Q4H PRN IV .SEVERE PAIN 7-10 Last administered on 01/04/19at 10:34; Admin Dose 2 MG; Start 12/31/18 at 08:00 Piperacillin Sod/ Tazobactam Sod 100 ml @ 200 mls/hr Q6 IVPB Last administered on 01/04/19at 11:24; Admin Dose 200 MLS/HR; Start 12/31/18 at 09:00 Allergies: Coded Allergies: No Known Allergy (Unverified , 12/31/18) Past Surgical History Past Surgical Hx: other (See HPI) Social History Alcohol Use: none Smoking Status: Current every day smoker Drug Use: none Exam/Review of Systems Exam Vitals Vital Signs Date Temp Pulse Resp B/P (MAP) Pulse Ox O2 O2 Flow FiO2 Time Delivery Rate 01/04/19 98.4 53 20 94/54 (67) 95 08:43 01/04/19 Room Air 02:05 Intake and Output 01/03/19 01/03/19 01/04/19 1515:00 23:00 07:00 IntakeIntake Total 1140 ml 700 ml 450 ml OutputOutput Total 200 ml BalanceBalance 940 ml 700 ml 450 ml Constitutional: frail Psych: no complaints, nl mood/affect Head: normocephalic, atraumatic Gastrointestinal: soft, nl liver, spleen, non-tender Results Result Diagram: 01/03/1943601/03/19436 Medications Medication Current Medications IV Flush (NS 3 ml) 3 ml PER PROTOCOL IV ; Start 12/31/18 at 08:00 Ondansetron HCl (Zofran Inj) 4 mg Q6H PRN IV NAUSEA/VOMITING Last administered on 01/02/19 09:52; Admin Dose 4 MG; Start 12/31/18 at 08:00 Morphine Sulfate (morphine) 2 mg Q4H PRN IV .SEVERE PAIN 7-10 Last administered on 01/04/19 10:34; Admin Dose 2 MG; Start 12/31/18 at 08:00 Piperacillin Sod/ Tazobactam Sod 100 ml @ 200 mls/hr Q6 IVPB Last administered on 01/04/19 11:24; Admin Dose 200 MLS/HR; Start 12/31/18 at 09:00 ANJANA SOUZA Jan 04, 2019 13:45
[2019-01-04 15:11] VITALS: BP 94/54; PULSE 53; RESP 20
--- NOTE | 2019-01-04 15:32 | PN ---
Date/Time of Note Date/Time of Note DATE: 01/04/19 TIME: 15:14 Assessment/Plan VTE Prophylaxis Risk score (from Ns)>0 risk: 3 SCD applied (from Ns): Yes Pharmacological prophylaxis: heparin Lines/Catheters IV [facility]ter Type (from [facility]): Peripheral IV Urinary Cath still in place: No Assessment/Plan Assessment/Plan Assessment: Dilated appendix with underlying cecal wall thickening concerning for neoplasm -CEA-- 18.4 -CA 19-9-- 325 -MRI- 12/31/18- Area of altered signal intensity in the region of the cecum suspicious for neoplasm when correlated with recent CT. Colonoscopy 01/02/19- cecal mass concerning for malignancy, bx -adenocarcinoma moderately differentiated Hepatic lesion -MRI- 12/31/18- A 1 cm short axis pericaval node in the upper abdomen, suspicious for malignancy. While there is significant motion artifact limiting assessment post contrast sequences, 6 cm posterior right hepatic lobe lesion as described in detail above is suggestive of metastasis, much less likely a cavernous hemangioma. Family history of colon ca i.e. father Current everyday smoker-1/2 pack per day Plan: Oncology and surgical recommendations appreciated Continue clear liquid diet Pain management Patient seen in collaboration with Dr. Aguilar Subjective: Course reviewed with nursing staff Patient interviewed and examined All labs, imaging and other results reviewed Resting in bed, discussed results of colonoscopy pathology. C/o lower abdominal pain unrelated to food, tolerating clear diet well. Surgical consult pending. Continue observation. Exam PHYSICAL EXAMINATION: GENERAL: Alert & oriented x 3, in no acute distress SKIN: No lesion HEAD: Normocephalic, atraumatic, no tenderness. EYES: Pupils equal reactive to light and accommodation, no discharge. EARS/NOSE AND THROAT: Ears normal, nose normal. NECK: Supple, no masses CHEST: Inspection within normal limits. CARDIOVASCULAR: Heart: Regular rate and rhythm RESPIRATORY: Lungs clear to auscultation GASTROINTESTINAL AND LIVER: Abdomen: Soft, lower abd tenderness, non-distended, no organomegaly, no ascites, no guarding, no rebound tenderness, normoactive bowel sounds. Rectal: Deferred. EXTREMITIES: No cyanosis, clubbing or edema. Result Diagram: 01/03/197 01/03/19436 CC: ALVIN AGUILAR MD ; Exam/Review of Systems Exam Vitals Vital Signs Date Temp Pulse Resp B/P (MAP) Pulse Ox O2 O2 Flow FiO2 Time Delivery Rate 01/04/19 98.6 53 20 94/54 (67) 96 Room Air 15:11 Intake and Output 01/03/19 01/03/19 01/04/19 1515:00 23:00 07:00 IntakeIntake Total 1140 ml 700 ml 450 ml OutputOutput Total 200 ml BalanceBalance 940 ml 700 ml 450 ml Medications Medication Current Medications IV Flush (NS 3 ml) 3 ml PER PROTOCOL IV ; Start 12/31/18 at 08:00 Ondansetron HCl (Zofran Inj) 4 mg Q6H PRN IV NAUSEA/VOMITING Last administered on 01/02/19 09:52; Admin Dose 4 MG; Start 12/31/18 at 08:00 Morphine Sulfate (morphine) 2 mg Q4H PRN IV .SEVERE PAIN 7-10 Last administered on 01/04/19 14:47; Admin Dose 2 MG; Start 12/31/18 at 08:00 Piperacillin Sod/ Tazobactam Sod 100 ml @ 200 mls/hr Q6 IVPB Last administered on 01/04/19 11:24; Admin Dose 200 MLS/HR; Start 12/31/18 at 09:00 SULMA HARDEN NP Jan 04, 2019 15:31
--- NOTE | 2019-01-04 15:44 | HPN ---
Date/Time of Note Date/Time of Note DATE: 01/04/19 TIME: 15:43 Interval H&P Admission Note Pt. seen H&P reviewed: Systems changes noted below Patient has been treated with Solu-Medrol and NG tube suction since his admission. There is no progress in terms of returning bowel function. Patient is still obstructed. I per GI series showed there is no progress of the contrast. Patient is taken to the operating room for exploratory laparoscopy possible laparotomy possible bowel resection for small bowel obstruction. FORTINO SHIPLEY MD Jan 04, 2019 15:44
--- NOTE | 2019-01-04 17:35 | PDOCDIS ---
Discharge Instructions DIAGNOSIS Discharge Diagnosis Moderately-differentiated colon adenocarcinoma 6 cm R lobe liver mass acute appendicitis CONDITION [id number] Patient Condition: [id number] Fair HOME CARE INSTRUCTIONS: [id number] Diet Instructions: [id number] Regular ACTIVITY: [id number] Activity Restrictions: [id number] No Restrictions FOLLOW UP/APPOINTMENTS Follow-up Plan For your acute appendicitis, finish a 10-day course of ciprofloxacin and metronidazole (antibiotics) as prescribed. You have cancer in a part of your large intestine called the cecum. We have confirmed this by biopsy. You also have a 6 cm mass in the right lobe of your liver which is probably cancer spread from the intestine. There are no other obvious cancerous masses on imaging. To confirm there is no other cancer in your body, you may need a PET scan which is a whole body scan which can detect cancer. If the cancer is only in your intestine and liver, you may be able to get surgery to remove half of the colon and half of the liver. You will need a specialist called a hepatobiliary surgeon. This is potentially curative and could make you cancer free. You would be left with a colostomy which may be able to be reversed in the future. If a scan shows that cancer has spread outside these two places; you will no longer be a candidate for surgery. You can still get palliative chemotherapy, which will slow down the spread of cancer, extend your life, and relieve some symptoms. You will need a [facility] which has a hepatobiliary surgeon as well as an oncologist. First you can go to [facility] to get a primary care doctor, who can refer you to a medical center like [facility] or [facility]. ALLISON FIGUEROA MD Jan 04, 2019 17:34
--- NOTE | 2019-01-04 17:42 | DS ---
Date/Time of Note Date/Time of Note DATE: 01/04/19 TIME: 17:35 Discharge Summary Admission/Discharge Info Admit Date/Time Dec 31, 2018 at 06:26 Discharge Date/Time Jan 04, 2019 Discharge Diagnosis Moderately-differentiated colon adenocarcinoma 6 cm R lobe liver mass Acute appendicitis Patient Condition: Good Hx of Present Illness Patient is a 43-year-old male with history of spontaneous pneumothorax requiring chest tube insertion who presented to ER complaining of abdominal pain. Pain started yesterday. It is diffuse, associated with one episode of vomiting with emesis described as dark and nonbloody. Patient also reported generalized weakness. Denied similar symptoms in the past. Denies constipation, diarrhea. Last bowel movement was yesterday, which he described as normal, not dark and is nonbloody. He is thinly build and stated that he has always been like this. Denied weight loss. When he was younger, used to smoke marijuana, otherwise denies illicit drug use, alcohol abuse. He does not smoke cigarettes however. When presented to the ER, initial temperature documented was 96.7. WBC 15,000, UA consistent with UTI. CT abdomen/pelvis shows the followin. Dilated fluid filled appendix measuring up to 1.6 cm diameter, appearance consistent with appendicitis with mucocele. 2. Mildly thickened heterogeneous appearance of the bowel wall at the cecal base raises concern for underlying neoplasm. 3. Ill-defined 6.2 cm low attenuation lesion within the right lobe of the liver, differential includes metastatic disease, primary neoplasm and infection. Consider further evaluation with MRI. Hospital Course He was started on IV zosyn for acute appendicitis and admitted to telemetry. He was evaluated by the general surgeon Dr. More who was concerned that the cecal mass may be malignant. The patient got a colonoscopy by Dr. Aguilar with cecal biopsy, which confirmed moderately-differential colon adenocarcinoma. MRI abdomen was done but unfortunately there was motion artifact, although the 6 cm liver mass does appear malignant. It appears the patient needs a right hemicolectomy and right liver hepatectomy. I spoke to Dr. Cassidy with hepatobiliary surgery who cannot see the patient in the hospital but offered to see him in clinic. On hospital day 5 the patient requested for discharge. Dr. Wilson with oncology was also consulted and confirmed that the patient should proceed to surgery as soon as possible, and neoadjuvant chemotherapy is not currently indicated. I will plan to discharge him to finish a 10 day course of antibiotics for acute appendicitis. Unfortunately he has no insurance and is pending [employer], so speciality clinic followups are limited. I think the best plan for him is to go through the [facility] system. We gave him information for [facility] where he can get a primary care doctor who can refer him to one of the larger medical centers like [facility] or [facility]. Home Meds Active Scripts Ciprofloxacin Hcl* (Ciprofloxacin Hcl*) 500 Mg Tablet, 500 MG PO BID for 7 Days, TAB Prov:BRE SIMS DO 12/31/18 Hydrocodone/Acetaminophen ([place] 10-325 Tablet) 1 Each Tablet, 1 TAB PO Q6H PRN for PAIN, #12 TAB Prov:BRE SIMS DO 12/31/18 Ondansetron (Ondansetron Odt) 8 Mg Tab.rapdis, 8 MG PO Q6H PRN for NAUSEA AND/OR VOMITING, #10 TAB Prov:BRE SIMS DO 12/31/18 Follow-up Plan For your acute appendicitis, finish a 10-day course of ciprofloxacin and metronidazole (antibiotics) as prescribed. You have cancer in a part of your large intestine called the cecum. We have confirmed this by biopsy. You also have a 6 cm mass in the right lobe of your liver which is probably cancer spread from the intestine. There are no other obvious cancerous masses on imaging. To confirm there is no other cancer in your body, you may need a PET scan which is a whole body scan which can detect cancer. If the cancer is only in your intestine and liver, you may be able to get surgery to remove half of the colon and half of the liver. You will need a specialist called a hepatobiliary surgeon. This is potentially curative and could make you cancer free. You would be left with a colostomy which may be able to be reversed in the future. If a scan shows that cancer has spread outside these two places; you will no longer be a candidate for surgery. You can still get palliative chemotherapy, which will slow down the spread of cancer, extend your life, and relieve some symptoms. You will need a [facility] which has a hepatobiliary surgeon as well as an oncologist. First you can go to [facility] to get a primary care doctor, who can refer you to a medical center like [facility] or [facility]. Primary Care Provider Care Physician No Primary Time spent on discharge: > 30 minutes ALLISON FIGUEROA MD Jan 04, 2019 17:42
== END 2019-01-04 19:15 | disposition home or self-care (01) | DRG 375 ==
LOC: E/R 02:23 → MS1 06:26
PROVIDERS: ADMIT Internal Medicine; ATTEND Internal Medicine
PROC: 0DBH8ZX Excision of Cecum, Via Natural or Artificial Opening Endoscopic, Diagnostic (ICD-10-PCS; principal; 2019-01-02 16:30)
PROC: 0DBM8ZZ Excision of Descending Colon, Via Natural or Artificial Opening Endoscopic (ICD-10-PCS; 2019-01-02 16:30)
DX: C18.0 Malignant neoplasm of cecum (principal); C78.7 Secondary malignant neoplasm of liver and intrahepatic bile duct; K35.80 Unspecified acute appendicitis; N39.0 Urinary tract infection, site not specified; F17.210 Nicotine dependence, cigarettes, uncomplicated; K64.8 Other hemorrhoids; Z80.0 Family history of malignant neoplasm of digestive organs
CPT/HCPCS: 36415; 71250; 74177; 74182; 80053; 80061; 81001; 82105; 82378; 83036; 83690; 83735; 84100; 84439; 84443; 85025; 86301; 87086; 88305; 96361; 96374; 96375; C9113; J1170; J2001; J2270; J2405; J2543; J7030; J7040; J7042; Q9967

== ENCOUNTER 2019-02-01 06:48 | Day surgery (SDC) | payer BC ==
[2019-02-01] VITALS (12 sets, daily range): BP systolic 96–116; BP diastolic 54–81; PULSE 58–75; RESP 14–20; Ht 180.3 cm; Wt 67.9 kg
[~2019-02-01] VITALS: Ht 180.3 cm; Wt 67.9 kg
[2019-02-01] MEDS ORDERED: SOD CHLORIDE 0.9% 1,000 ML IV SCH (07:48)
[2019-02-01] MEDS ORDERED: LIDOCAINE 1% (MDV) 20 ML INJ ONE (08:25)
[2019-02-01] MEDS ORDERED: FENTAnyl 50 MCG/ML VIAL ONE (08:57)
[2019-02-01] MEDS ORDERED: MIDAZOLAM 1 MG/ML 2 ML INJ ONE (08:57)
[2019-02-01] MEDS ORDERED: HYDROCODONE/APAP (5/325) TAB PO PRN (10:00)
[2019-02-01] MEDS ORDERED: HYDROCODONE/APAP (5/325) TAB ONE (10:00)
== END 2019-02-01 12:38 | disposition home or self-care (01) ==
LOC: SDS 06:48
PROVIDERS: ATTEND Radiology Diagnostic Radiology
DX: C78.7 Secondary malignant neoplasm of liver and intrahepatic bile duct (principal); C18.0 Malignant neoplasm of cecum
CPT/HCPCS: 47000; 77012; 85610; 85730; 88307; 88313; J2250; J3010; Z7610